=== PATIENT | female | born 1985 | race Caucasian/White ===

== ENCOUNTER 2017-08-03 02:32 | Emergency (ER) | payer MEDICAID ==
[~2017-08-03] VITALS: Ht 162.6 cm; Wt 72.6 kg
[~2017-08-03 02:32] MED LIST: PRENATAL VITAMINS
[2017-08-03] MEDS ORDERED: LIDOCAINE 1% HCL (LOCAL ANESTH.) INJ 20ML MDV IN ONE (04:00)
[2017-08-03 04:07] VITALS: BP 115/73
[2017-08-03] MEDS ORDERED: TETANUS-DIPTH-ACEL PERTUSSIS 0.5ML SYRG IM ONE (04:15)
[2017-08-03] MEDS ORDERED: HYDROcodone-ACET 10/325MG TAB PO ONE (04:30)
[2017-08-03] MEDS ORDERED: BACITRACIN TOP OINT 1 UD PKG TOP ONE ×2 (04:48→05:00)
== END 2017-08-03 05:37 | disposition home or self-care (01) ==
LOC: ER 02:32 → EDBD 02:32 → ER 05:37
DX: S51.812A Laceration without foreign body of left forearm, initial encounter (principal); F17.210 Nicotine dependence, cigarettes, uncomplicated; W22.8XXA Striking against or struck by other objects, initial encounter; Y93.89 Activity, other specified; Y92.89 Other specified places as the place of occurrence of the external cause; Y99.8 Other external cause status
CPT/HCPCS: 12034; 73090; 90471; 90715

== ENCOUNTER 2020-11-16 02:18 | Inpatient (IN) | payer SELFPAY ==
[~2020-11-16] VITALS: Ht 30.5 cm; Wt 0.5 kg
[2020-11-16] MEDS ORDERED: LACT. RINGERS/OXYTOCIN 20UNITS 1,000 ML IV ONE ×2 (02:28→04:15)
[2020-11-16] MEDS ORDERED: OXYTOCIN 10UNIT/ML 1ML VIAL ONE (02:30)
[2020-11-16] MEDS ORDERED: WITCH HAZEL-GLYCERIN PAD TOP PRN (03:00)
[2020-11-16] MEDS ORDERED: PHISODERM TOP SOLN 240ML BTL TOP PRN (03:00)
[2020-11-16] MEDS ORDERED: DERMOPLAST 60ML BOTTLE TOP PRN (03:00)
[2020-11-16] MEDS ORDERED: IBUPROFEN 600 MG TAB PO PRN (03:30)
[2020-11-16] MEDS ORDERED: ACETAMINOPHEN 325 MG TAB PO PRN (03:30)
[2020-11-16] MEDS ORDERED: OXYTOCIN 10UNIT/ML 1ML VIAL IM ONE (03:30)
[2020-11-16 03:52] LABS: Basophils # (auto) 0.1 10 ^3/uL (0-0.2); Basophils % (auto) 0.4 % (0.0-2.0); Eosinophils # (auto) 0.1 10 ^3/uL (0-0.8); Eosinophils % (auto) 0.8 % (0.0-7.0); Hematocrit 35.3 % (36.0-46.0); Hemoglobin 11.7 g/dL (12.2-16.2); Lymphocytes # (auto) 2.1 10 ^3/uL (0.4-5.4); Lymphocytes % (auto) 10.9 % (10.0-50.0); Mean Corpuscular Hemoglobin 28.3 pg (28.0-32.0); Mean Corpuscular Hgb Conc. 33.1 g/dL (32.0-36.0); Mean Corpuscular Volume 85.5 fL (80.0-100.0); Monocytes # (auto) 0.8 10 ^3/uL (0-1.3); Monocytes % (auto) 4.2 % (0.0-12.0); Neutrophils % (auto) 83.7 % (37.0-80.0); Nucleated Red Blood Cells % 0.1 %; Red Blood Cells 4.13 10^6/uL (4.0-5.20); Red Cell Distribution Width 13.5 % (11.8-14.3); White Blood Cell 19.1 10^3/uL (4.4-10.8)
[2020-11-16 04:07] LABS: Albumin 2.2 g/dL (3.4-5.0); Calcium 8.6 mg/dL (8.5-10.1); Potassium 3.5 mmol/L (3.5-5.1)
[2020-11-16 04:10] LABS: INR 0.89 (0.9-1.15)
[2020-11-16] MEDS ORDERED: LACTATED RINGER'S 1,000 ML IV SCH (04:15)
[2020-11-16 04:16] LABS: BUN/Creatinine Ratio 13.3; Bilirubin, Total 0.6 mg/dL (0.2-1.0); Total Protein 6.2 g/dL (6.4-8.2); Uric Acid 5.3 mg/dL (2.6-6.0)
[2020-11-16 06:42] VITALS: BP 124/81
[2020-11-16] MEDS ORDERED: ceFAZolin 1GM/50ML 50 ML IV SCH (07:00)
[2020-11-16 07:09] LABS: Urine Bacteria NONE SEEN /hpf (None Seen); Urine Mucus FEW (None Seen)
[2020-11-16 07:12] LABS: Urine Blood 3+ /uL (Negative)
[2020-11-16 07:16] LABS: Urine WBC 3 /hpf (0 - 5)
[2020-11-16 07:17] LABS: Urine Specific Gravity 1.035 (1.001-1.035)
[2020-11-16 07:25] LABS: Alcohol, Urine < 3.0 mg/dL (0-10); Amphetamine Screen, Urine POSITIVE (NEGATIVE); Barbiturate Scree,Urine NEGATIVE (NEGATIVE); Benzodiazephine Screen, Urine NEGATIVE (NEGATIVE); Cannabinoid Screen, Urine NEGATIVE (NEGATIVE); Cocaine Screen, Urine NEGATIVE (NEGATIVE); Phencyclidine Screen, Urine NEGATIVE (NEGATIVE)
[2020-11-16 07:32] LABS: Opiate Scree,Urine NEGATIVE (NEGATIVE)
[2020-11-17 06:06] LABS: RPR Non Reactive (Non Reactive)
[2020-11-17 07:06] LABS: Rubella Antibodies, IgG 1.27 index (Immune >0.99)
== END 2020-11-16 08:16 | disposition left against medical advice (07) | DRG 807 ==
LOC: EDBD 02:18 → LDRP 02:18
PROVIDERS: ADMIT Specialist; ATTEND Specialist
PROC: 10E0XZZ Delivery of Products of Conception, External Approach (ICD-10-PCS; principal; 2020-11-16)
DX: O80 Encounter for full-term uncomplicated delivery (principal); Z37.0 Single live birth; Z3A.39 39 weeks gestation of pregnancy
CPT/HCPCS: 36415; 59414; 80053; 80307; 81001; 84550; 85025; 85384; 85610; 85730; 86592; 86703; 86762; 86850; 86900; 86901; 87340; 96360; 96366; 96372; G0378; J0690; J2590